=== PATIENT | female | born 1955 | race Two or more races ===

== ENCOUNTER 2018-01-08 23:56 | Inpatient (IN) | payer OTHER ==
[~2018-01-08] VITALS: Ht 152.4 cm; Wt 45.4 kg
[2018-01-09] MEDS ORDERED: LORAZEPAM INJ 2 MG/ML VIAL IVP ONE (00:30)
[2018-01-09] MEDS ORDERED: IV NS 0.9% 500 ML BAG IV ONE (00:30)
[2018-01-09] MEDS ORDERED: ONDANSETRON HCL/PF - ER 4 MG/2 ML VIAL IV ONE (00:30)
[2018-01-09] MEDS ORDERED: MECLIZINE HCL 12.5 MG TABLET PO ONE (00:30)
[2018-01-09] MEDS ORDERED: CLONIDINE HCL 0.1 MG TABLET PO ONE (00:30)
[2018-01-09] MEDS ORDERED: CLONIDINE HCL 0.1 MG TABLET ONE (00:31)
[2018-01-09] MEDS ORDERED: ONDANSETRON HCL/PF 4 MG/2 ML VIAL ONE (00:31)
[2018-01-09] MEDS ORDERED: LORAZEPAM INJ 2 MG/ML VIAL ONE (00:32)
[2018-01-09] MEDS ORDERED: MECLIZINE HCL 25 MG TABLET ONE (00:32)
[2018-01-09 00:40] LABS: BASOPHILS % (AUTO) 0.4 % (0.0-2.0); HEMATOCRIT 44 % (33-45); HEMOGLOBIN 14.3 g/dL (11.5-14.8); LYMPHOCYTES # (AUTO) 4.3 /CMM (0.8-4.8); LYMPHOCYTES % (AUTO) 53.5 % (20.0-44.0); MEAN CORPUSCULAR HEMOGLOBIN 30 PG (26.0-33.0); MEAN CORPUSCULAR HGB CONC 33 g/dl (31.0-36.0); MEAN CORPUSCULAR VOLUME 92 fL (82-100); MONOCYTES # (AUTO) 0.5 /CMM (0.1-1.30); MONOCYTES % (AUTO) 6.5 % (2.0-12.0); NEUTROPHILS # (AUTO) 2.9 /CMM (1.8-8.9); NEUTROPHILS % (AUTO) 35.6 % (43.0-81.0); PLATELET COUNT (AUTO) 294 /CMM (150-450); RDW COEFFICIENT OF VARIATION 12.9 (11.5-15.0); RED BLOOD CELL COUNT(AUTO) 4.72 MIL/uL (4.0-5.2); WHITE BLOOD COUNT (AUTO) 8.1 K/uL (4.3-11.0)
[2018-01-09 00:57] LABS: ALBUMIN 4.1 g/dL (3.4-5.0); BILIRUBIN,DIRECT 0.1 mg/dL (0.0-0.2); BILIRUBIN,TOTAL 0.2 mg/dL (0.2-1.0); CALCIUM, SERUM 9.2 mg/dL (8.5-10.1); CREATININE 0.5 mg/dL (0.6-1.3); POTASSIUM 3.8 mmol/L (3.5-5.1)
[2018-01-09 00:58] LABS: TROPONIN I 0.087 ng/mL (0.00-0.056)
[2018-01-09 01:13] LABS: INR 0.93 (0.87-1.13)
[2018-01-09] MEDS ORDERED: BENA1TAB18 PO (03:16)
[2018-01-09 04:46] VITALS: BP 133/67
[2018-01-09] MEDS ORDERED: IV PREMIX NS +20MEQ KCL 1 L IV ONE (05:29)
[2018-01-09] MEDS ORDERED: Potassium Chloride 20 MEQ in IV NS 0.9% 1,000 ML IV PRN (06:00)
[2018-01-09 06:35] LABS: CALCIUM, SERUM 8.7 mg/dL (8.5-10.1); CREATININE 0.5 mg/dL (0.6-1.3); POTASSIUM 4.4 mmol/L (3.5-5.1)
[2018-01-09 06:39] LABS: BASOPHILS % (AUTO) 0.5 % (0.0-2.0); HEMATOCRIT 39 % (33-45); HEMOGLOBIN 12.8 g/dL (11.5-14.8); LYMPHOCYTES # (AUTO) 3.4 /CMM (0.8-4.8); LYMPHOCYTES % (AUTO) 36.1 % (20.0-44.0); MEAN CORPUSCULAR HEMOGLOBIN 30 PG (26.0-33.0); MEAN CORPUSCULAR HGB CONC 33 g/dl (31.0-36.0); MEAN CORPUSCULAR VOLUME 91 fL (82-100); MONOCYTES # (AUTO) 0.5 /CMM (0.1-1.30); MONOCYTES % (AUTO) 5.7 % (2.0-12.0); NEUTROPHILS # (AUTO) 5.2 /CMM (1.8-8.9); NEUTROPHILS % (AUTO) 55.7 % (43.0-81.0); PLATELET COUNT (AUTO) 280 /CMM (150-450); RDW COEFFICIENT OF VARIATION 12.5 (11.5-15.0); RED BLOOD CELL COUNT(AUTO) 4.24 MIL/uL (4.0-5.2); WHITE BLOOD COUNT (AUTO) 9.3 K/uL (4.3-11.0)
[2018-01-09 06:41] LABS: TROPONIN I 0.354 ng/mL (0.00-0.056)
[2018-01-09 06:47] LABS: THYROID STIMULATING HORMONE 3.797 uIU/mL (0.358-3.74)
[2018-01-09 08:00] VITALS: BP 133/60
[2018-01-09] MEDS ORDERED: ONDANSETRON HCL/PF 4 MG/2 ML VIAL IVP PRN (08:30)
[2018-01-09] MEDS ORDERED: ACETAMINOPHEN 325 MG TABLET PO PRN (08:30)
[2018-01-09] MEDS ORDERED: METOPROLOL TARTRATE 25 MG TABLET PO SCH (09:00)
[2018-01-09] MEDS ORDERED: MECLIZINE HCL 12.5 MG TABLET PO SCH (09:00)
[2018-01-09] MEDS ORDERED: ASPIRIN EC 325 MG TABLET.DR PO SCH (09:00)
[2018-01-09] MEDS ORDERED: ENOXAPARIN SODIUM 40 MG/0.4 ML DISP.SYRIN SQ SCH (09:00)
[2018-01-09 10:23] VITALS: BP 137/73
[2018-01-09] MEDS ORDERED: ATORVASTATIN 40 MG TABLET PO SCH (22:00)
== END 2018-01-09 11:45 | disposition short-term general hospital (02) | DRG 641 ==
LOC: ER 23:57 → TELE1 01-09 03:38
PROVIDERS: ADMIT Internal Medicine; ATTEND Internal Medicine
DX: E87.1 Hypo-osmolality and hyponatremia (principal); R42 Dizziness and giddiness; I10 Essential (primary) hypertension; R00.2 Palpitations; E78.5 Hyperlipidemia, unspecified
CPT/HCPCS: 36415; 80048-TC; 80061-TC; 80076-TC; 84443-TC; 84484-TC; 85025-TC; 85730-TC; 87081-TC; A4606; J1650; J2060; J2405; J3480; J3490; J7030; J7040; J8597; Z7610